=== PATIENT | male | born 1995 | race Hispanic/Latino ===

== ENCOUNTER 2016-07-31 15:08 | Emergency (ER) | payer OTHER ==
[2016-07-31 15:19] VITALS: BP 125/85; PULSE 102; RESP 20; TEMP 97.7; O2SAT 100
[2016-07-31] MEDS ORDERED: Lidocaine 2% w Epi 1:100,000 Inj IJ ONE (15:41)
[2016-07-31] MEDS ORDERED: Lidocaine 1% w Epi 1:100,000 Inj IJ STA (16:47)
--- NOTE | 2016-07-31 16:58 | ED PDOC ---
HPI: Skin/Bite Injury Time Seen by Provider: 07/31/16 15:29 Chief Complaint (Nursing): Trauma Chief Complaint (Provider): laceration History Per: Patient History/Exam Limitations: no limitations Onset/Duration Of Symptoms: Mins (prior to arrival ) Current Symptoms Are (Timing): Still Present Additional Complaint(s): Sai Busby is a 21 year old male, with no previous medical history, who presents to the ED for evaluation after sustaining an injury prior to arrival. Pt reports to playing basketball with his cousin when they both collided heads while attempting to reach for the ball. Pt reports to getting blurry vision which later subsided. Pt reports a headache, lacerations to the face, dizziness and headache. Pt states last tetanus 2 years ago. Pt denies any nausea, vomiting or additional complaints. PMD: none provided Past Medical History Reviewed: Historical Data, Nursing Documentation, Vital Signs Vital Signs: Last Vital Signs Temp 97.7 F 07/31/16 15:11 Pulse 102 H 07/31/16 15:11 Resp 20 07/31/16 15:11 BP 125/85 07/31/16 15:11 Pulse Ox 100 07/31/16 17:07 - Medical History PMH: No Chronic Diseases - Family History Family History: States: Unknown Family Hx - Immunization History Hx Tetanus Toxoid Vaccination: No Hx Influenza Vaccination: No Hx Pneumococcal Vaccination: No - Allergies Allergies/Adverse Reactions: Allergies Allergy/AdvReac Type Severity Reaction Status Date / Time No Known Allergies Allergy Verified 07/31/16 15:10 Review of Systems ROS Statement: Except As Marked, All Systems Reviewed And Found Negative Eyes: Positive for: Vision Change (subsided ) Skin: Positive for: Other (facial lacerations ) Neurological: Positive for: Headache, Dizziness Physical Exam - Reviewed Nursing Documentation Reviewed: Yes Vital Signs Reviewed: Yes - Physical Exam Appears: Positive for: Well, Non-toxic, No Acute Distress Head Exam: Positive for: NORMAL INSPECTION, NORMOCEPHALIC. Negative for: ATRAUMATIC (5 cm laceration linear to the left forehead. 3.5 cm laceration to the inferior right eyebrow ) Skin: Positive for: Normal Color, Warm, Dry Cardiovascular/Chest: Positive for: Regular Rate, Rhythm Respiratory: Positive for: Normal Breath Sounds Extremity: Positive for: Normal ROM Neurologic/Psych: Positive for: Alert, Oriented - ECG O2 Sat by Pulse Oximetry: 100 (RA) Pulse Ox Interpretation: Normal Medical Decision Making Medical Decision Making: Initial Impression: head injury Initial Plan: * CT head w/o contrast * Lidocaine/epi * laceration repair * reevaluation Scribe Attestation: Documented by Tamika Leong, acting as a scribe for Suzie Mcintosh PA-C. Provider Scribe Attestation: All medical record entries made by the Scribe were at my direction and personally dictated by me. I have reviewed the chart and agree that the record accurately reflects my personal performance of the history, physical exam, medical decision making, and the department course for this patient. I have also personally directed, reviewed, and agree with the discharge instructions and disposition. Disposition - Clinical Impression Clinical Impression: Head injury, Facial laceration - Patient ED Disposition Is Patient to be Admitted: No Counseled Patient/Family Regarding: Diagnosis, Need For Followup - Disposition Referrals: [facility] [Outside] Disposition: Routine/Home Disposition Time: 18:08 Condition: GOOD Additional Instructions: Ice, motrin for pain. Do not get wound wet for 24-48 hours. Keep clean and dry with antibiotic ointment. Sunscreen or facial lotion with SPF for 1 year to reduce scarring. Instructions: Laceration (ED) Laceration - Laceration Repair forehead laceration Wound Length (In cm): 1.97 in (left forehead ) Description Of Wound: Linear Wound Cleansed With: Betadine, Sterile Saline Anesthesia: Lidocaine 1%, With Epi Wound Examination: Irrigated With Saline Wound Closure: Suture (4 subcutaneous and 6 on top) Suture Technique And Material Used: Chromic (6-0) Wound Complexity: Intermediate Wound Complexity: Intermediate eyebrow laceration Wound Length (In cm): 1.38 in (inferior eyebrow ) Description Of Wound: Linear Wound Cleansed With: Betadine, Sterile Saline Anesthesia: Lidocaine 1%, With Epi Wound Closure: Suture (7) Suture Technique And Material Used: Interrupted, Chromic (6-0) Wound Complexity: Simple
--- NOTE | 2016-07-31 17:25 | CT ---
PROCEDURE: CT HEAD WITHOUT CONTRAST. HISTORY: head injury, dizziness COMPARISON: None available. TECHNIQUE: Axial computed tomography images were obtained through the head/brain without intravenous contrast. Radiation dose: Total exam DLP = 848.56 mGy-cm. This CT exam was performed using one or more of the following dose reduction techniques: Automated exposure control, adjustment of the mA and/or kV according to patient size, and/or use of iterative reconstruction technique. FINDINGS: HEMORRHAGE: No intracranial hemorrhage. BRAIN: No mass effect or edema. No atrophy or chronic microvascular ischemic changes. VENTRICLES: Unremarkable. No hydrocephalus. CALVARIUM: Unremarkable. PARANASAL SINUSES: Unremarkable as visualized. No significant inflammatory changes. MASTOID AIR CELLS: Unremarkable as visualized. No inflammatory changes. OTHER FINDINGS: None. IMPRESSION: Normal CT of the Head. No intracranial hemorrhage.
== END 2016-07-31 18:21 | disposition home or self-care (01) ==
LOC: H.ER 15:08
DX: S01.81XA Laceration without foreign body of other part of head, initial encounter (principal); W22.8XXA Striking against or struck by other objects, initial encounter; Y92.310 Basketball court as the place of occurrence of the external cause